=== PATIENT | female | born 1970 | race African-American/Black ===

== ENCOUNTER 2017-01-19 12:36 | Emergency (ER) | payer SELFPAY ==
[~2017-01-19] VITALS: Ht 175.3 cm; Wt 81.0 kg
[2017-01-19 13:05] VITALS: BP 123/81
[2017-01-19] MEDS ORDERED: MAGNESIUM/ALUMINUM HYDROXIDE/SIMETHICONE 30ML UDC PO STA (13:18)
[2017-01-19] MEDS ORDERED: VISCOUS LIDOCAINE 2% 15 ML UDC PO STA (13:18)
== END 2017-01-19 14:28 | disposition home or self-care (01) ==
LOC: ER 14:08
DX: K21.9 Gastro-esophageal reflux disease without esophagitis (principal); F17.200 Nicotine dependence, unspecified, uncomplicated; Z88.8 Allergy status to other drugs, medicaments and biological substances
CPT/HCPCS: 99283

== ENCOUNTER 2024-03-06 13:29 | Emergency (ER) | payer SELFPAY ==
[~2024-03-06] VITALS: Ht 172.7 cm; Wt 86.2 kg
[2024-03-06 13:36] VITALS: O2SAT 98
[2024-03-06 15:04] LABS: CLARITY URINE CLEAR (CLEAR); COLOR URINE YELLOW (YELLOW); GLUCOSE URINE NEGATIVE (NEGATIVE); KETONES URINE NEGATIVE (NEGATIVE); LEUKOCYTE ESTERASE URINE TRACE (NEGATIVE); NITRITE URINE NEGATIVE (NEGATIVE); OCCULT BLOOD URINE 1+ (NEGATIVE); PH URINE 6.5 (4.5-8.0); PROTEIN URINE NEGATIVE (NEGATIVE); SPECIFIC GRAVITY URINE 1.022 (1.005-1.030)
[2024-03-06 15:40] LABS: BACTERIA URINE 1+; MUCUS URINE 1+ /lpf (< = 2+); SQUAMOUS EPITHELIAL CELL URINE FEW /lpf (RARE/1+); WBC URINE 0-2 /hpf (0-2)
[2024-03-06 17:12] VITALS: BP 168/93; PULSE 85; RESP 16; TEMP 98.3
== END 2024-03-06 17:02 | disposition home or self-care (01) ==
LOC: ER 13:29
DX: R10.2 Pelvic and perineal pain (principal); Z88.8 Allergy status to other drugs, medicaments and biological substances
CPT/HCPCS: 76830; 76856; 81003; 81025; 99284